=== PATIENT | female | born 2000 | race Caucasian/White ===

== ENCOUNTER 2024-10-16 14:16 | Emergency (ER) | payer BC, MEDICAID, SELFPAY ==
[2024-10-16 14:24] VITALS: BP 144/93; PULSE 123; RESP 20; TEMP 37.6; O2SAT 100; BMI 30.7
--- NOTE | 2024-10-16 14:50 | PD.EDABDPN ---
ED Abdominal Pain RME/HPI General Chief Complaint: Abdominal Pain Stated complaint: ABD PAIN, CHEST PAIN, N/V Time seen by provider: 10/16/24 14:28 Arrival date/time: 10/16/24 14:16 Source: patient Mode of arrival: ambulatory RME / HPI RME / HPI narrative: 24-year-old female presents the ED with a complaint of abdominal pain that began 2 days ago. Patient tells me that she has not been able to keep any fluids down. She has been vomiting. Related Data Previous Rx's ?Medication ?Instructions ?Recorded cephalexin 500 mg capsule 500 mg PO TID #21 caps 12/05/23 Allergies Allergy/AdvReac Type Severity Reaction Status Date / Time No Known Allergies Allergy Mild Unverified 12/22/08 11:21 Course Orders Category Date Time Status CBC Stat Lab 10/16/24 15:09 Completed Comprehensive Metabolic Panel Stat Lab 10/16/24 15:09 Received HCG Qualitative,Urine Stat Lab 10/16/24 14:51 Ordered Lipase Stat Lab 10/16/24 15:09 Received Urinalysis Stat Lab 10/16/24 14:51 Ordered Vital Signs Vital signs: Vital Signs Temperature 99.6 F 10/16/24 14:24 Pulse Rate 123 H 10/16/24 14:24 Respiratory Rate 20 10/16/24 14:24 Blood Pressure 144/93 H 10/16/24 14:24 Pulse Oximetry (%) 100 10/16/24 14:24 Oxygen Delivery Method Room Air 10/16/24 14:24 Discharge Plan Prescriptions/Referrals Prescriptions/Med Rec: No Action cephalexin 500 mg capsule 500 mg PO TID Qty: 21 0RF Patient/Caregiver Discharge Instructions Print Language: Faroese
[2024-10-16 15:23] LABS: Basophils # (Auto) 0.1 Thou/mm3 (0.0-0.2); Basophils % (Auto) 1 % (0-2.5); Eosinophils # (Auto) 0.1 Thou/mm3 (0.0-0.5); Eosinophils % (Auto) 1 % (0-10); Hemoglobin 13.1 g/dL (12.0-16.0); Immature Granulocytes % (Auto) 0 % (0-0); Immature Granulocytes Auto 0.03 Thou/mm3 (0.00-0.00); Lymphocytes # (Auto) 0.9 Thou/mm3 (1.0-4.8); Lymphocytes % (Auto) 8 % (10-50); Mean Corpuscular HGB Conc 32.8 g/dl (31.0-37.0); Mean Corpuscular Hemoglobin 27.4 pg (25.0-35.0); Mean Corpuscular Volume 84 fL (80-100); Monocytes # (Auto) 0.5 Thou/mm3 (0.0-0.8); Monocytes % (Auto) 5 % (0-12); Neutrophils # (Auto) 9.3 Thou/mm3 (1.8-7.7); Neutrophils % (Auto) 86 % (37-80); Nucleated Red Blood Cell % 0 /100 WBC (0); Platelet Count 256 Thou/mm3 (140-440); RDW Standard Deviation 43.2 fL (36.4-46.3); Red Blood Count 4.78 Miln/mm3 (4.00-5.20); White Blood Count 10.8 Thou/mm3 (3.6-11.0)
[2024-10-16 15:38] LABS: Alanine Aminotransferase 12 U/L (10-49); Albumin, Serum 4.7 gm/dL (3.5-5.0); Albumin/Globulin Ratio 1.5 (1.2-2.2); Alkaline Phosphatase 99 U/L (46-116); Anion Gap 12 (7-16); Aspartate Amino Transferase 15 U/L (0-34); BUN/Creatinine Ratio 13 Ratio (12-20); Bilirubin,Total 0.8 mg/dL (0.3-1.2); Blood Urea Nitrogen 10 mg/dL (9-23); Calcium 9.5 mg/dL (8.3-10.6); Calcium (Corrected) 9.5 mg/dL (8.5-10.1); Carbon Dioxide 19.5 mMol/L (20.0-31.0); Chloride 107 mMol/L (98-107); Creatinine (Component) 0.8 mg/dL (0.6-1.3); Estimated Creatinine Clearance 119.9 mL/min (>60); Globulin 3.2 gm/dL (2.3-3.5); Glucose 114 mg/dL (74-106); Lipase 26 U/L (12-53); Osmolality,Calculated 275 (275-295); Potassium 3.8 mMol/L (3.4-5.1); Sodium 138 mMol/L (136-145); Total Protein 7.9 gm/dL (5.7-8.2); eGFR > 60 See Note
[2024-10-16] MEDS: PROMETHAZINE INJ 25 MG/ML VIAL 12.5 MG IM (15:53)
--- NOTE | 2024-10-16 15:56 | XR_ITS ---
Examination: Pelvic ultrasound, transabdominal, complete Technique: Transabdominal ultrasound of the pelvis performed using grayscale imaging Date and time of exam: October 09 at 1637 hours INDICATIONS: Right lower abdominal pelvic pain and vomiting beginning 2 days ago FINDINGS: Uterus 7.9 cm endometrial stripe 1.0 cm No uterine mass or intrauterine gestation Right ovary 2.6 cm arterial flow 10 mm follicular cyst Left ovary 0.3 cm arterial flow 11 mm follicular cyst IMPRESSION: Negative examination
--- NOTE | 2024-10-16 16:09 | EDNOTE_ITS ---
ED General RME/HPI General Chief complaint: Abdominal Pain Stated complaint: ABD PAIN, CHEST PAIN, N/V Time Seen by Provider: 10/16/24 14:28 Source: patient Arrival date/time: 10/16/24 14:16 CC: Nausea vomiting HPI ongoing for the past 2-1/2 days. Patient denies any diarrhea painful urination bloody urination constipation vaginal bleeding vaginal discharge. Lower abdominal cramping or dull ache especially when vomiting. No other complaints no other family numbers ill with similar s ymptoms. Is currently nauseated last episode of retching was approximately 10 minutes ago. Mode of arrival: ambulatory RME / HPI RME / HPI narrative: 24-year-old female presents the ED with a complaint of abdominal pain that began 2 days ago. Patient tells me that she has not been able to keep any fluids down. She has been vomiting. Related Data Previous Rx's ?Medication ?Instructions ?Recorded cephalexin 500 mg capsule 500 mg PO TID #21 caps 12/04 ciprofloxacin HCl 500 mg tablet 500 mg PO BID #14 tabs 10/16/24 (Cipro) ondansetron 4 mg disintegrating 4 mg PO Q8H #10 tabs 0 10/16/24 tablet Allergies Allergy/AdvReac Type Severity Reaction Status Date / Time No Known Allergies Allergy Mild Unverified 12/22/08 11:21 Review of Systems Review of Systems Narrative Review of Systems: GEN: No fever, no chills, no weight loss EYES: No discharge, no visual changes, no pain HEENT: No ear pain, no congestion, no sore throat PULM: No shortness of breath, no cough, no congestion CV: No chest pain, no dyspnea on exertion, no palpitations GI: + nausea, + vomiting, no diarrhea, no pain, no constipation : No frequency, no urgency, no dysuria MUSC/SKEL: No joint pain, no back pain SKIN: No rash PSYCH: No hallucinations, no depression HEME/LYMPH: No easy bleeding or bruising tendencies NEURO: No weakness, no headache Past Medical History Social History SMOKING STATUS: Never smoker SUBSTANCE USE: does not use ED Exam Narrative Physical exam: [General: Obese not in any acute distress Head normocephalic HEENT: Within acceptable limits Neck is supple nontender Chest equal chest rise nontender to palpation Respiratory: Clear to auscultation no wheezes crackles or rubs CV: Rate rhythm is regular no murmurs rubs or clicks Abdomen is distended secondary to body habitus soft nontender no masses positive bowel sounds all 4 quadrants Back: No CVA tenderness no spinous process tenderness from cervical spine thoracic and lumbar spine Skin: Intact no petechiae rash induration ulceration or crepitus Extremities: Moving all extremity against resistance cap refill less than 2 seconds neurosensory intact Neuro: Awake alert oriented x3 Glascow coma 15 no focal deficits] Course Quality Measures none Orders Category Date Time Status Saline [Insert IV] NOW Care 10/16/24 16:09 Active US pelvic complete Stat Exams 10/16/24 15:56 Completed CBC Stat Lab 10/16/24 15:09 Completed Comprehensive Metabolic Panel Stat Lab 10/16/24 15:09 Completed HCG Qualitative,Urine Stat Lab 10/16/24 16:26 Completed Lipase Stat Lab 10/16/24 15:09 Completed Urinalysis Stat Lab 10/16/24 16:26 Completed Ciprofloxacin HCl [Ciprofloxacin] Med 10/16/24 18:24 Once 500 mg PO X1 ONE Prochlorperazine Inj [Compazine Inj] Med 10/16/24 17:25 Discontinued 10 mg IVP X1 ONE Promethazine Inj [Phenergan Inj] Med 10/16/24 15:29 Discontinued 12.5 mg IM X1 ONE Sodium Chloride 0.9% 1000 ml [Ns] 1,000 ml Med 10/16/24 16:09 Discontinued IV 999 mls/hr cefTRIAXone/D5w 1gm IV premix [Rocephin/D5w 1gm IV Med 10/16/24 18:22 Discontinued premix] 1 gm in 50 ml IV X1 Vital Signs Vital signs: Vital Signs Temperature 99.6 F 10/16/24 14:24 Pulse Rate 123 H 10/16/24 14:24 Respiratory Rate 20 10/16/24 14:24 Blood Pressure 144/93 H 10/16/24 14:24 Pulse Oximetry (%) 100 10/16/24 14:24 Oxygen Delivery Method Room Air 10/16/24 14:24 Discharge Plan Plan Patient Disposition: HOME (Self Care) Patient condition on transfer: Stable Prescriptions/Referrals Prescriptions/Med Rec: New ciprofloxacin HCl [Cipro] 500 mg tablet 500 mg PO BID Qty: 14 0RF ondansetron 4 mg tablet,disintegrating 4 mg PO Q8H Qty: 10 0RF No Action cephalexin 500 mg capsule 500 mg PO TID Qty: 21 0RF Problem List Clinical Impression: Nausea & vomiting, UTI (urinary tract infection) Patient/Caregiver Discharge Instructions Education Materials: ED CYSTITIS Female Adult, ED Vomiting (Adult) Additional Instructions: Rest drink plenty of water take the medications as prescribed use the ondansetron for nausea or vomiting if there is a worsening of symptoms return the emergency room for further evaluation otherwise follow-up with your primary care doctor. Print Language: Lao Stand Alone Forms: Robyn Award Info., Patient Portal Info Letter, Work/School Release PA/[employer] Supervising Physician PA/[employer] Supervising Physician: Landry Begum ENP MDM Patient Acuity Low Acuity (complete MDM as needed) Clinical Information Provided by: patient Medical Records reviewed [facility] Chronic Illness/Social Conditions which may negatively complicate care or outcome(s)-explain: None or not applicable Labs Lab(s) Interpretation(s): CBC shows no acute leukocytosis anemia thrombocytopenia CMP shows a CO2 of 19.5 glucose of 114 no transaminases or T. bili elevation Urine is turbid nitrite positive for RBCs 6 squamous 3+ bacteria Imaging Imaging Interpretation(s): Ultrasound is negative Medication Administration(s) Medication Administration History Discontinued Medications Sodium Chloride (Ns) 1,000 mls @ 999 mls/hr IV .Q1H1M ONE Stop: 10/16/24 17:09 Last Infusion: 10/16/24 18:14 Dose: Infused Documented By: Admin: 10/16/24 16:34 Dose: 999 mls/hr Documented By: SM Ceftriaxone Sodium/Dextrose (Rocephin/D5w 1gm Iv Premix) 1 gm in 50 mls @ 100 mls/hr IV X1 ONE Stop: 10/16/24 18:51 Prochlorperazine Edisylate (Prochlorperazine Inj 5 Mg/Ml Vial 2 Ml) 10 mg IVP X1 ONE; Protocol Stop: 10/16/24 17:26 Last Admin: 10/16/24 18:10 Dose: 10 mg Documented By: KAMALA Promethazine HCl (Promethazine Inj 25 Mg/Ml Vial) 12.5 mg IM X1 ONE; Protocol Stop: 10/16/24 15:30 Last Admin: 10/16/24 15:53 Dose: 12.5 mg Documented By: KF Diagnosis Differential Diagnosis ED Complaint MDM: UTI pyelonephritis
[2024-10-16 16:19] VITALS: BP 135/91; PULSE 112; RESP 22; O2SAT 100
[2024-10-16 16:30] LABS: Collection Type, Urine Clean Catch
[2024-10-16] MEDS: SODIUM CHLORIDE 0.9% 1000 ML 1,000 ML 999 ML IV (16:34)
[2024-10-16 16:40] LABS: HCG Qualitative,Urine Negative
[2024-10-16 16:43] LABS: Bacteria,Urine 3+; Bilirubin,Urine Negative (Negative); Blood,Urine Trace (Negative); Clarity,Urine Turbid (Clear/Hazy); Color,Urine Yellow (Lt Yel-Yel); Glucose, Urine Negative (Negative); Ketones,Urine 1+ (Negative); Leukocyte Esterase,Urine Negative (Negative); Nitrite,Urine Positive (Negative); Protein,Urine Negative (Neg - Trace); RBC,Urine 4 /hpf (0-3); Specific Gravity,Urine 1.026 (1.001-1.035); Squamous Epithelial Cell,Urine 6 /hpf (0-5); WBC,Urine 3 /hpf (0-5)
[2024-10-16] MEDS: PROCHLORPERAZINE INJ 5 MG/ML VIAL 2 ML 10 MG IVP (18:10)
[2024-10-16 18:18] VITALS: BP 125/84; PULSE 105; RESP 20; O2SAT 98
--- NOTE | 2024-10-16 18:42 | PC.NURSE ---
PATIENT IN ROOM WITH INCREASED ANXIETY, REQUESTING TO LEAVE ED PRIOR TO RECIEVING MEDICATION. PATIENT GIVEN ICE CHIPS AND WAS ABLE TO CALM SELF PRIOR TO LEAVING.
== END 2024-10-16 18:44 | disposition home or self-care (01) ==
PROVIDERS: Physician Assistant; Emergency Provider Emergency Medicine
DX: N39.0 Urinary tract infection, site not specified (principal); R11.2 Nausea with vomiting, unspecified
CPT/HCPCS: 36415; 76856; 80053; 81001; 81025; 83690; 85025; 96361; 96372; 96374; 99284; J0780; J2550; J7030

== ENCOUNTER → 2025-04-10 | Outpatient (CLI) | payer BC, MEDICAID, SELFPAY ==
[2025-04-10 09:34] LABS: Basophils # (Auto) 0.1 Thou/mm3 (0.0-0.2); Basophils % (Auto) 1 % (0-2.5); Eosinophils # (Auto) 0.1 Thou/mm3 (0.0-0.5); Eosinophils % (Auto) 2 % (0-10); Hematocrit 38.7 % (36.0-46.0); Hemoglobin 12.8 g/dL (12.0-16.0); Immature Granulocytes Auto 0.01 Thou/mm3 (0.00-0.00); Lymphocytes # (Auto) 2.2 Thou/mm3 (1.0-4.8); Lymphocytes % (Auto) 36 % (10-50); Mean Corpuscular HGB Conc 33.1 g/dl (31.0-37.0); Mean Corpuscular Hemoglobin 28.4 pg (25.0-35.0); Mean Corpuscular Volume 86 fL (80-100); Monocytes # (Auto) 0.4 Thou/mm3 (0.0-0.8); Monocytes % (Auto) 7 % (0-12); Neutrophils # (Auto) 3.2 Thou/mm3 (1.8-7.7); Neutrophils % (Auto) 53 % (37-80); Nucleated Red Blood Cell # 0.00 Thou/mm3 (0.00-0.00); Nucleated Red Blood Cell % 0 /100 WBC (0); Platelet Count 236 Thou/mm3 (140-440); RDW Standard Deviation 44.3 fL (36.4-46.3); Red Blood Count 4.51 Miln/mm3 (4.00-5.20); White Blood Count 6.0 Thou/mm3 (3.6-11.0)
[2025-04-10 10:00] LABS: Alanine Aminotransferase 9 U/L (10-49); Albumin, Serum 4.2 gm/dL (3.5-5.0); Albumin/Globulin Ratio 1.4 (1.2-2.2); Alkaline Phosphatase 63 U/L (46-116); Anion Gap 12 (7-16); Aspartate Amino Transferase 15 U/L (0-34); BUN/Creatinine Ratio 8 Ratio (12-20); Bilirubin,Total 0.4 mg/dL (0.3-1.2); Blood Urea Nitrogen 6 mg/dL (9-23); Calcium 9.0 mg/dL (8.3-10.6); Calcium (Corrected) 9.0 mg/dL (8.5-10.1); Carbon Dioxide 21.5 mMol/L (20.0-31.0); Cardiac Risk Estimate 2.9 RATIO (3.7-5.6); Chloride 108 mMol/L (98-107); Cholesterol 88 mg/dL (132-200); Creatinine (Component) 0.8 mg/dL (0.6-1.3); Globulin 3.0 gm/dL (2.3-3.5); Glucose 87 mg/dL (74-106); HDL Cholesterol 30 mg/dL (40-60); LDL Cholesterol,Calculated 49 mg/dL (0-130); Osmolality,Calculated 277 (275-295); Potassium 3.6 mMol/L (3.4-5.1); Sodium 141 mMol/L (136-145); Thyroid Stimulating Hormone 2.64 uIU/mL (0.55-4.78); Total Protein 7.2 gm/dL (5.7-8.2); Triglycerides 45 mg/dL (30-150); eGFR > 60 See Note
[2025-04-10 10:13] LABS: Glucose Estimated Average 111 mg/dL (80-131); Hemoglobin A1C 5.5 % Hgb (4.8-6.0)
== END | disposition home or self-care (01) ==
LOC: COPL 08:33
PROVIDERS: PCP Student in an Organized Health Care Education/Training Program; Referring Provider Student in an Organized Health Care Education/Training Program; Visit Provider Student in an Organized Health Care Education/Training Program
DX: F41.9 Anxiety disorder, unspecified (principal); F32.A Depression, unspecified; Z83.3 Family history of diabetes mellitus; Z82.49 Family history of ischemic heart disease and other diseases of the circulatory system
CPT/HCPCS: 36415; 80053; 80061; 83036; 84443; 85025